=== PATIENT | female | born 1995 | race Caucasian/White ===

== ENCOUNTER 2022-08-19 10:43 | Inpatient (IN) ==
[2022-08-21] MEDS ORDERED: OXYTOCIN 30 UNITS/500 ML BAG IV PRN ×2 (08:38)
[2022-08-21] MEDS ORDERED: LIDOCAINE 1% LOCAL 20 ML VIAL INFIL PRN (08:38)
--- NOTE | 2022-08-21 09:20 | Anesthesiology Consultation ---
Date of Service August 21, 2022 Assessment & Plan Chart Review Chart Review: Acceptable Risk for Surgery, Patient NOT seen in Pre Admission Testing and Acceptable Risk for Labor Epidural Consults Requested none ASA ASA2 Proposed Anesthesia Anesthesia Type: Labor Epidural and CSE History Height/Weight Height: 5 ft 5 in Weight: 99.337 kg Allergies Allergy/AdvReac Type Severity Reaction Status Date / Time No Known Allergies Allergy Verified 08/18/22 11:57 Medications Home Medications Medication Instructions Recorded Confirmed Last Taken prenat.vits,lanre,qfv-lidt-uupki 1 tab PO DAILY 01/04/22 08/21/22 08/21/22 acetone (urine) test (Ketone Urine #50 ea 07/08/22 08/18/22 Unknown Test strips) blood sugar diagnostic (OneTouch #150 ea 07/08/22 08/18/22 Unknown Verio test strips) blood-glucose meter (AmnisTouch #1 ea 07/08/22 08/18/22 Unknown Verio Reflect Meter) lancets 33 gauge (OneTouch Delica #150 ea 07/08/22 08/18/22 Unknown Lancets) Past Medical History Medical History Gestational diabetes Diet-controlled No known health problems obesity Exercise / Class Metabolic Activity II 4-5 Yardwork/Stairs/Walk up hill Past Family History Family History Other Diabetes Hypertension Myocardial infarction Prostate cancer Past Surgical History Surgical History S/P wisdom tooth extraction Past Anesthesia History No Hx of Anesthesia Complications and No Family Hx of Anesthesia Complications History of PONV No Hx of PONV and No Hx of Motion Sickness Social History Smoking Status: Never smoker Do You Dip or Chew Tobacco: No Hx Alcohol Use: No Hx Substance Use: No Physical Exam Vital Signs Last Vital Signs Temp 36.8 C 08/21/22 08:44 Pulse 89 08/21/22 08:38 Resp 20 08/21/22 08:44 BP 128/83 08/21/22 08:38 Testing Laboratory Results 08/21/22 09:08 POC Glucose 112 H
--- NOTE | 2022-08-21 09:50 | Labor Progress Brief Note ---
Date of Service August 21, 2022 Subjective Patient met in 424. No OB c/o currently. Planned IOL delayed from Monday due to high census. Chart reviewed, EFW and option of 1'LTCS discussed with patient, prefers IOL. Assessment & Plan (1) Gestational diabetes mellitus (GDM) affecting : Plan: IOL, pitocin to start, eventually AROM / epidural if needed. Admission and Anticipated Discharge Date Admission Date: August 21, 2022 Physical Exam Genitourinary: 4/100/-2/soft/post FHT Cat 1 [place] irritable Results & Data Vital Signs (Past 12 Hours) Vital Signs Temp Pulse Resp BP 08/21/22 08:44 98.2 F 20 08/21/22 08:38 89 128/83 Coding Level of Care Code None Diagnoses Gestational diabetes mellitus (GDM) affecting O24.419
[2022-08-21 10:00] LABS: Hematocrit (blood only) 37.4 % (37.0-47.0); Hemoglobin 13.3 g/dl (12.0-16.0); Mean Corpuscular Hemoglobin 30.2 pg (25.0-34.0); Mean Corpuscular Hgb Conc 35.6 g/dL (32.0-36.0); Mean Corpuscular Volume 84.8 fL (80.0-100.0); Mean Platelet Volume 10.3 fL (9.4-12.4); Platelet Count 242 K/uL (130-400); RDW Standard Deviation 43.5 fL (36.4-46.3); Red Blood Count 4.41 M/uL (4.20-5.40); White Blood Count 7.99 K/ul (4.8-10.8)
[2022-08-21] MEDS: LACTATED RINGER'S 1,000 ML IV PRN ×2 (10:16→14:18)
[2022-08-21] MEDS ORDERED: fentaNYL citrate PF 100 MCG/2 ML VIAL ONE (13:54)
--- NOTE | 2022-08-21 13:54 | Labor Progress Brief Note ---
Date of Service August 21, 2022 Subjective More uncomfortable but still tolerating labor well. Interested in AROM and epidural. Assessment & Plan (1) Gestational diabetes mellitus (GDM) affecting : Plan: AROM complete, will request epidural, continue pitocin. Admission and Anticipated Discharge Date Admission Date: August 21, 2022 Physical Exam Genitourinary: Cervix similar to prior exam. AROM for copious clear fluid FHT Cat 1 [place] Q3-6 Results & Data Vital Signs (Past 12 Hours) Vital Signs Temp Pulse Resp BP 08/21/22 08:44 98.2 F 20 08/21/22 13:25 69 20 121/77 08/21/22 12:04 76 121/71 08/21/22 10:58 98.2 F 68 18 110/67 08/21/22 10:18 83 123/88 08/21/22 08:38 89 128/83 Coding Level of Care Code None Diagnoses Gestational diabetes mellitus (GDM) affecting O24.419
[2022-08-21] MEDS ORDERED: LIDOCAINE 2%/EPINEPHRINE 1:200,000 20 ML PF ONE (13:55)
[2022-08-21] MEDS ORDERED: ePHEDrine sulfate 50 MG/ML AMP ONE (13:55)
[2022-08-21] MEDS ORDERED: BUPIVACAINE 0.25% PF 30 ML VIAL ONE (13:55)
[2022-08-21] MEDS ORDERED: SODIUM CHLORIDE 0.9% PF INJ 10 ML VIAL ONE (13:55)
[2022-08-21] MEDS ORDERED: fentaNYL 2MCG/ML ROPIVACAINE 1.25MG/ML 100 ML BAG EPI ONE (13:55)
[2022-08-21] MEDS ORDERED: LIDOCAINE 2% MPF LOCAL 5 ML VIAL EPI PRN (14:02)
[2022-08-21] MEDS ORDERED: NALOXONE HCL 0.4 MG/1 ML VIAL/CARP IV PRN (14:02)
[2022-08-21] MEDS ORDERED: ONDANSETRON INJ 2 MG/ML 2 ML VIAL IV PRN (14:02)
[2022-08-21] MEDS ORDERED: fentaNYL 2MCG/ML ROPIVACAINE 1.25MG/ML 100 ML BAG EPI PRN (14:02)
[2022-08-21] MEDS ORDERED: ePHEDrine sulfate 50 MG/ML AMP IV PRN (14:02)
[2022-08-21] MEDS ORDERED: ROPIVACAINE 0.5% PF 5 MG/ML 20 ML VIAL EPI PRN (14:02)
[2022-08-21] MEDS ORDERED: PROMETHAZINE HCL 25 MG in SODIUM CHLORIDE 0.9% 50 ML IV PRN (14:02)
[2022-08-21] MEDS ORDERED: NALOXONE HCL 1 MG in SODIUM CHLORIDE 0.9% 1000ML 1,000 ML IV PRN (14:02)
[2022-08-21] MEDS ORDERED: LIDOCAINE 2%/EPINEPHRINE 1:200,000 20 ML PF EPI STA (14:02)
[2022-08-21] MEDS ORDERED: NALBUPHINE HCL INJ 10 MG/ML AMP IV PRN (14:02)
[2022-08-21] MEDS ORDERED: BUPIVACAINE 0.25% PF 30 ML VIAL EPI STA (14:02)
[2022-08-21] MEDS ORDERED: SODIUM CHLORIDE 0.9% PF INJ 10 ML VIAL EPI PRN (14:02)
[2022-08-21] MEDS ORDERED: BUPIVACAINE 0.25% PF 30 ML VIAL EPI PRN (14:02)
[2022-08-21] MEDS ORDERED: fentaNYL citrate PF 100 MCG/2 ML VIAL EPI PRN (14:02)
[2022-08-21] MEDS ORDERED: diphenhydrAMINE 50 MG/ML VIAL IV PRN (14:02)
[2022-08-21] MEDS: fentaNYL citrate PF 100 MCG/2 ML VIAL EPI STA ×2 (15:04→17:08)
[2022-08-21] MEDS: SODIUM CHLORIDE 0.9% PF INJ 10 ML VIAL EPI STA ×2 (15:05→17:08)
[2022-08-21] MEDS ORDERED: NURSING L&D Epidural Breakthrough Pain Update ONE (16:57)
--- NOTE | 2022-08-21 17:04 | Anesthesia Procedure Note ---
Date of Service August 21, 2022 Anesthesia Epidural Re-Dose Vital Signs Temp Pulse Resp BP Pulse Ox 36.7 C 80 20 127/78 98 08/21/22 14:50 08/21/22 17:03 08/21/22 16:07 08/21/22 16:52 08/21/22 17:03 Notes Pain Intensity: 7 Dilatation (cm): 8.5 Effacement (%): 100 Heart Rate: 140 After Epidural Re-Dose Mental Status: alert / awake / arousable and participated in evaluation Pain: improving with treatment Airway Patency, RR, SpO2: stable & adequate BP & HR: stable & adequate Additional Notes: @ 1700 pt epidural catheter was bolused w/ 12 ml 0.17% bupivacaine + fentanyl 100 mcgs using incremental aspirations and injections,performed w/o incident.
--- NOTE | 2022-08-21 20:17 | Delivery Summary ---
Vaginal Delivery Summary Date of Service August 21, 2022 Vaginal Delivery Summary DIAGNOSES: 1. Soriano intrauterine at 40w2d gestation. 2. Induction of labor due to A1GDM, LGA. 3. Group B Streptococcus Neg. 4. PPH 600cc PROCEDURE: Spontaneous vaginal delivery and repair of bilateral sulcal and 2nd deg laceration. SURGEON: Jazmyne Restrepo MD. BIOMEDICAL ENGINEERING PROFESSOR: None. ESTIMATED BLOOD LOSS: 600 mL. COMPLICATIONS: None. PLACENTA: Spontaneous and intact with a 3-vessel cord. DISPOSITION: Stable to labor and delivery. DESCRIPTION: The patient pushed well and brought the head to in OA position, and then delivered the head with a strong maternal effort. There was no nuchal cord. The shoulders and body delivered without any difficulty, and the was placed on the maternal abdomen. It was limp with no movement and no respiratory effort. The cord was doubly clamped by the MD and then quickly cut by the FOB and it was taken rapidly to the warmer for resuscitation, which included PPV; see nursery notes for full information. Apgars were 1 and 8. The placenta delivered spontaneously and was noted to be intact and with a 3VC. The cervix, vagina and perineum were examined and were found to have bilateral sulcal lacerations and a deep second degree laceration. These were repaired in the usual manner with vicryl suture. One episode of brisk bleeding during repair was able to be managed with fundal massage. The fundus was firm and lochia minimal immediately after delivery. EBL was felt to be 600cc due to a combination of large lacerations and uterine bleeding. Although there is not currently atony, given the already-significant loss and the elevated risk of atony after delivery of large , cytotec 1000mcg was placed [place]. [facility] Vaginal Delivery Charge Vaginal Delivery Codes: 99853 global code for the antepartum, delivery, and post-
[2022-08-21] MEDS ORDERED: miSOPROStoL 200 MCG TAB ONE (20:55)
[2022-08-21] MEDS ORDERED: DIPHTHERIA/TETANUS/PERTUSSIS Vaccine (Tdap, Age 7+yrs) 0.5mL SYR/VL IM ONE (21:05)
[2022-08-21] MEDS ORDERED: oxyCODONE/ACETAMINOPHEN 5mg/325mg TAB PO PRN (21:05)
[2022-08-21] MEDS ORDERED: BENZOCAINE 20% AER SPR 82.5 GM CAN EXT PRN (21:05)
[2022-08-21] MEDS ORDERED: HYDROCORTISONE ACETATE 25 MG SUPP PR PRN (21:05)
[2022-08-21] MEDS ORDERED: miSOPROStoL 200 MCG TAB PR ONE (21:17)
[2022-08-21] MEDS: DOCUSATE SODIUM 100 MG CAP PO SCH (21:44)
[2022-08-21] MEDS: ACETAMINOPHEN 325 MG TAB PO PRN (21:44)
[2022-08-21] MEDS: IBUPROFEN 600 MG TAB PO PRN (23:20)
[2022-08-22] MEDS: IBUPROFEN 600 MG TAB PO PRN ×4 (04:14→21:04)
[2022-08-22] MEDS: ACETAMINOPHEN 325 MG TAB PO PRN ×3 (05:49→23:22)
--- NOTE | 2022-08-22 05:51 | Obstetrical Progress Note ---
Date of Service <Rosanne Karlo DO Jonathon - Last Filed: 08/22/22 05:51> August 22, 2022 Assessment & Plan <Rosanne Karlo DO [place]athon - Last Filed: 08/22/22 05:51> (1) care following vaginal delivery: Feels well today. Eating well, voiding well, ambulating well. Pain well controlled with prn motrin. Routine care; OOB, ambulation, continue regular diet. Anticipate discharge roughly 24 hours after delivery for a , tonight or tomorrow. After discharge will have 6 week follow-up with Dr. Restrepo. <Jazmyne Restrepo MD - Last Filed: 08/22/22 07:09> (1) care following vaginal delivery: Subjective <Rosanne Karlo DO [place] - Last Filed: 08/22/22 05:51> Pt is a 27 y/o female who is PPD#1 following at 40 2/7 weeks. was complicated by GDM, LGA, and delivery was complicated by PPH of 600mL. Today, patient states that she is feeling well. Her pain is around a 4/10 and has been well controlled with motrin. She has been ambulating. She has been voiding and passing gas. Has some persistent lochia with some improvement this morning. She has eaten regular diet without nausea or vomiting. She is breast feeding. Baby boy's name is Rj. Constitutional: no fever, no chills or no sweats Respiratory: no dyspnea Cardiovascular: no chest pain or no palpitations Breast: no breast pain Genitourinary (female): no dysuria Neurologic: no headache(s) no changes in vision, no headaches Physical Exam <Rosannechris Holt DO - Last Filed: 08/22/22 05:51> General: Alert, oriented. No acute distress. Cardiac: Regular rate and rhythm, no murmurs, rubs, or gallops. Respiratory: Clear to auscultation bilaterally, no wheezes/rales/rhonchi. No increased work of breathing. Symmetrical chest rise. No respiratory distress. Abdomen: Soft, nontender, nondistended. Bowel sounds present. Uterus: Uterine fundus firm, palpable below the umbilicus. Lower extremities: No lower extremity edema or swelling. No deep calf pain. Results & Data <Rosannechris Holt, DO - Last Filed: 08/22/22 05:51> Vital Signs (Past 12 Hours) Vital Signs Temp Pulse Pulse Resp BP BP Pulse Ox 08/22/22 03:12 36.9 C 87 18 106/65 96 08/21/22 22:10 37.0 C 20 08/21/22 22:52 36.9 C 87 18 129/77 08/21/22 21:40 20 08/21/22 21:10 18 08/21/22 20:55 18 08/21/22 20:40 18 08/21/22 20:25 18 08/21/22 20:10 20 08/21/22 22:11 86 127/84 08/21/22 21:56 89 118/79 08/21/22 21:41 87 121/78 08/21/22 21:26 83 120/82 08/21/22 21:11 82 128/73 08/21/22 20:56 99 H 129/75 08/21/22 20:41 86 118/60 08/21/22 20:38 81 99 08/21/22 20:33 86 100 08/21/22 20:28 80 99 08/21/22 20:25 78 122/74 08/21/22 20:23 78 100 08/21/22 20:18 99 H 99 08/21/22 20:13 96 H 100 08/21/22 20:10 90 123/71 08/21/22 20:08 89 98 08/21/22 20:07 91 H 118/68 08/21/22 20:03 88 98 08/21/22 19:58 104 H 98 08/21/22 19:53 85 98 08/21/22 19:52 85 140/65 08/21/22 19:48 81 94 08/21/22 19:47 83 91 08/21/22 19:43 85 98 08/21/22 19:38 115 H 95 08/21/22 19:33 95 H 97 08/21/22 19:28 113 H 97 08/21/22 19:23 106 H 97 08/21/22 19:24 106 H 123/59 L 08/21/22 19:18 113 H 98 08/21/22 19:13 102 H 98 08/21/22 19:08 98 08/21/22 19:08 97 H 08/21/22 19:08 96 H 133/61 08/21/22 19:03 95 H 98 08/21/22 18:58 114 H 98 08/21/22 18:53 123 H 98 08/21/22 18:54 100 H 127/69 08/21/22 18:48 98 H 98 08/21/22 18:43 95 H 97 08/21/22 18:38 97 H 95 08/21/22 18:33 91 H 98 08/21/22 18:28 98 H 99 08/21/22 18:23 108 H 97 08/21/22 18:22 115 H 134/79 08/21/22 18:18 96 H 100 08/21/22 18:13 102 H 99 08/21/22 18:08 93 H 97 08/21/22 18:07 79 130/72 08/21/22 18:03 96 H 97 08/21/22 17:58 84 97 08/21/22 17:54 93 H 20 108/65 08/21/22 17:53 92 H 98 08/21/22 17:48 93 H 97 O2 Del Method 08/22/22 03:12 Room Air 08/21/22 22:10 08/21/22 22:52 08/21/22 21:40 08/21/22 21:10 08/21/22 20:55 08/21/22 20:40 08/21/22 20:25 08/21/22 20:10 08/21/22 22:11 08/21/22 21:56 08/21/22 21:41 08/21/22 21:26 08/21/22 21:11 08/21/22 20:56 08/21/22 20:41 08/21/22 20:38 08/21/22 20:33 08/21/22 20:28 08/21/22 20:25 08/21/22 20:23 08/21/22 20:18 08/21/22 20:13 08/21/22 20:10 08/21/22 20:08 08/21/22 20:07 08/21/22 20:03 08/21/22 19:58 08/21/22 19:53 08/21/22 19:52 08/21/22 19:48 08/21/22 19:47 08/21/22 19:43 08/21/22 19:38 08/21/22 19:33 08/21/22 19:28 08/21/22 19:23 08/21/22 19:24 08/21/22 19:18 08/21/22 19:13 08/21/22 19:08 08/21/22 19:08 08/21/22 19:08 08/21/22 19:03 08/21/22 18:58 08/21/22 18:53 08/21/22 18:54 08/21/22 18:48 08/21/22 18:43 08/21/22 18:38 08/21/22 18:33 08/21/22 18:28 08/21/22 18:23 08/21/22 18:22 08/21/22 18:18 08/21/22 18:13 08/21/22 18:08 08/21/22 18:07 08/21/22 18:03 08/21/22 17:58 08/21/22 17:54 08/21/22 17:53 08/21/22 17:48 <Jazmyne Restrepo MD - Last Filed: 08/22/22 07:09> Co-Signing Physician Notes Resident Physician Supervision Note: I interviewed and examined the patient. Discussed with Dr. Holt and agree with findings and plan as documented in the note. Any exceptions or clarifications are listed here: [ ] Documented By: Jazmyne Restrepo MD, FACOG Resident Activity Tracking <Rosanne Holt DO - Last Filed: 08/22/22 05:51> Resident Involvement: Resident Care Provided Care Provided: OB Delivery
--- NOTE | 2022-08-22 07:37 | Anesthesia Procedure Note ---
Date of Service August 22, 2022 Anesthesia Post Epidural Note Vital Signs Vital Signs: Temp Pulse Resp BP Pulse Ox O2 Del Method 36.9 C 87 18 106/65 96 Room Air 08/22/22 03:12 08/22/22 03:12 08/22/22 03:12 08/22/22 03:12 08/22/22 03:12 08/22/22 03:12 Pain Intensity Bilateral Abdomen: Pain Intensity: 4 Notes Mental Status: alert / awake / arousable and participated in evaluation Nausea / Vomiting: adequately controlled Pain: adequately controlled Airway Patency, RR, SpO2: stable & adequate BP & HR: stable & adequate Hydration State: stable & adequate Neuraxial Anesthesia: was administered and sensory block resolved Anesthetic Complications: no major complications apparent and Pt Satisfied with anesthetic care Epidural: Removed without complications and With tip intact
[2022-08-22 07:58] LABS: Hematocrit (blood only) 27.6 % (37.0-47.0); Hemoglobin 9.7 g/dl (12.0-16.0); Mean Corpuscular Hemoglobin 30.5 pg (25.0-34.0); Mean Corpuscular Hgb Conc 35.1 g/dL (32.0-36.0); Mean Corpuscular Volume 86.8 fL (80.0-100.0); Mean Platelet Volume 10.4 fL (9.4-12.4); Platelet Count 210 K/uL (130-400); RDW Coefficient of Variation 13.8 % (11.5-14.5); RDW Standard Deviation 43.3 fL (36.4-46.3); Red Blood Count 3.18 M/uL (4.20-5.40); White Blood Count 11.12 K/ul (4.8-10.8)
[2022-08-22] MEDS: PRENATAL VITAMIN 1 TAB PO SCH (08:28)
[2022-08-22] MEDS: DOCUSATE SODIUM 100 MG CAP PO SCH ×2 (08:28→21:04)
[2022-08-22] MEDS ORDERED: bisacodyL 5 MG TABEC PO SCH (20:00)
[2022-08-23] MEDS ORDERED: bisacodyL 10 MG SUPP PR PRN
[2022-08-23] MEDS: IBUPROFEN 600 MG TAB PO PRN (03:18)
--- NOTE | 2022-08-23 06:18 | Obstetrical Progress Note ---
Date of Service <Rosanne Dietrich DO [place] - Last Filed: 08/23/22 06:18> August 23, 2022 Assessment & Plan <Rosanne Dietrich DO [place]athon - Last Filed: 08/23/22 06:18> (1) care following vaginal delivery: Pt continuing to do well today. Pain well controlled with prn motrin. Routine care; OOB, ambulation, continue regular diet. Plan for discharge today. After discharge will have 6 week follow-up with Dr. Restrepo. <Le Gleason MD, FACOG - Last Filed: 08/23/22 08:17> (1) care following vaginal delivery: Day #:: 2 Subjective <Rosanne Dietrich DO [place] - Last Filed: 08/23/22 06:18> Pt is a 27 y/o female who is PPD#2 following at 40 2/7 weeks. was complicated by GDM, LGA, and delivery was complicated by PPH of 600mL. Pt states that she is doing okay today. She states that she did not walk around as much yesterday because she had increased bleeding, which has since improved. She has been voiding and passing gas, no BM yet. She has been tolerating regular diet. Her pain today is about a 4/10 and she states it has been well controlled with motrin. No further questions or complaints at this time. She is breast feeding. Constitutional: no fever, no chills or no sweats Respiratory: no dyspnea Cardiovascular: no chest pain or no palpitations Breast: no breast pain Genitourinary (female): no dysuria Neurologic: no headache(s) no changes in vision, no headaches Physical Exam <Rosanne Dietrich DO [place] - Last Filed: 08/23/22 06:18> General: Alert, oriented. No acute distress. Cardiac: Regular rate and rhythm, no murmurs, rubs, or gallops. Respiratory: Clear to auscultation bilaterally, no wheezes/rales/rhonchi. No increased work of breathing. Symmetrical chest rise. No respiratory distress. Abdomen: Soft, nontender, nondistended. Bowel sounds present. Uterus: Uterine fundus firm, palpable below the umbilicus with minimal tenderness. Lower extremities: No lower extremity edema or swelling. No deep calf pain. Results & Data <Rosanne Holt DO - Last Filed: 08/23/22 06:18> Vital Signs (Past 12 Hours) Vital Signs Temp Pulse Resp BP BP Pulse Ox O2 Del Method 08/22/22 23:45 36.8 C 89 18 101/63 96 Room Air 08/22/22 19:26 36.9 C 92 H 18 109/63 96 Room Air <Le Gleason MD, FACOG - Last Filed: 08/23/22 08:17> Co-Signing Physician Notes Resident Physician Supervision Note: I was present with Dr. Holt during the history and exam. I discussed the case with the resident and agree with the findings and plan as documented in the note. Any exceptions or clarifications are listed here: stable doing well ready to go home, , ambulating, eating regular food and voiding. abd soft ff 2 down nt, nt calves. ppd#2, s/p , pph, hgb stable. pt aware of po iron. she will plan 6wk pp check. breast/had mmr/rh pos Documented By: Le Gleason MD, FACOG Resident Activity Tracking <Rosanne Holt DO - Last Filed: 08/23/22 06:18> Resident Involvement: Resident Care Provided Care Provided: OB Delivery
[2022-08-23 06:21] LABS: Hematocrit (blood only) 27.8 % (37.0-47.0); Hemoglobin 9.4 g/dl (12.0-16.0)
[2022-08-23] MEDS: PRENATAL VITAMIN 1 TAB PO SCH (08:18)
[2022-08-23] MEDS: DOCUSATE SODIUM 100 MG CAP PO SCH (08:18)
[2022-08-23] MEDS: ACETAMINOPHEN 325 MG TAB PO PRN (08:18)
== END 2022-08-23 14:02 | disposition home or self-care (01) | DRG 807 ==
LOC: 4S1 08-21 08:28 → 4E1 08-21 23:01

== ENCOUNTER 2024-02-29 23:43 | Observation (INO) ==
--- NOTE | 2024-03-01 00:15 | Emergency Department Note ---
Impression & Plan Cholelithiasis affecting in third trimester, antepartum the case was signed out to Dr. Mcwilliams at change of shift awaiting MRCP ED Provider Note NAME: LAURA MOREL AGE: 28 SEX: Female INFORMANT: Patient ED PROVIDER(S): Rissa Rojo DO CHIEF COMPLAINT: epigastric pain PLAN: Disposition: the case was signed out to Dr. Mcwilliams MEDICAL DECISION MAKING: this is a 28-year-old female patient who presented to labor and delivery initially with epigastric abdominal pain. She was cleared from an obstetrical standpoint as to not be in labor and Dr. Butler did not think she was suffering from HELLP syndrome. She was concern for the possibility of acute cholecystitis As she had elevated transaminases. She referred her to the emergency department for further evaluation. Patient was medicated with IV morphine and Zofran Right upper quadrant ultrasound showed evidence of acute gallstones and sludge. I had discussed the case with GI and they recommended repeating the patient's LFTs in 6 to 8 hours. If they increased, they recommended MRCP. Repeat LFTs revealed elevated transaminases, total bilirubin and direct bilirubin. The patient will go for MRCP. The patient remains pain-free and hemodynamically stable. The case will be signed out to Dr. Mcwilliams awaiting MRI testing. The patient was placed on IV normal saline maintenance fluid and will be kept NPO. Care/management discussed with: Dr. Pepe from gastroenterology; Dr. Butler from OB; Dr. Mcwilliams at signout Triage Nursing notes: reviewed and agree with them. Vital Signs: reviewed and unremarkable Chronic Medical/Social Conditions affecting care: 30 weeks - Differential Diagnosis: pancreatitis, ulcerative disease, cholecystitis, choledocholithiasis Diagnostics, independently interpreted by me: Cardiac Monitoring: normal sinus rhythm at a rate of 85 Imaging studies: right upper quadrant ultrasound: As per [facility] MRCP-pending HPI: 28 year old Female arrives for evaluation of epigastric pain and nausea. patient developed significant epigastric pain around 630 this evening. She has never had pain like this in the past. She had associated nausea but no vomiting. She describes eating [employer] chicken dinner which was high in fat. patient was evaluated by OB on labor and delivery prior to coming to our emergency department. They cleared her by doing laboratory studies and monitoring the baby on the tocometer. She was not having any contractions and there was good movement. Laboratory studies revealed elevated transaminases PAST MEDICAL HISTORY: See Below, PAST SURGICAL HISTORY: none family history: Both parents have had cholecystectomy SOCIAL HISTORY: with 1 child at home, HOME MEDICATIONS: see list ALLERGIES: none VITALS: See Below PHYSICAL EXAMINATION: HEENT: Head - normocephalic and atraumatic. Pupils are equal, round, and reactive to light. Extraocular eye muscles are intact, and sclera are anicteric. Nose - moist nasal mucosa without discharge. Mouth - moist buccal mucosa. Oropharynx is nonerythematous and there is no tonsillar exudate or edema noted. Neck: Supple; No cervical lymphadenopathy Heart: Regular rate and rhythm. There is a normal S1 and S2 with no murmurs, clicks, or gallops appreciated. Lungs: Clear to auscultation bilaterally with no wheezes, rales, or rhonchi. Abdomen: Soft, exquisite tenderness to palpation in the epigastrium and right upper quadrant. The rest of the abdomen is gravid. Extremities: No evidence of cyanosis, clubbing, or edema. There are easily palpable peripheral pulses. Skin: warm and dry with good turgor and no rashes. Emergency department treatment: IV morphine, IV Zofran, IV normal saline drip Emergency Department course: The patient was evaluated in room B-3. A complete history and physical was performed. IV lock was initiated and lipase was drawn. Patient was medicated with IV morphine and IV Zofran. She went for ultrasound of the right upper quadrant. Upon returning from radiology, she was much more comfortable. I reviewed the results of the ultrasound with the patient. I discussed the case with Dr. Pepe from gastroenterology. He recommended repeating the laboratory studies around 6 AM. We did this and the values had increased. We will obtain MRCP. The patient was placed on IV normal saline drip and kept NPO. The case was signed out to Dr. Mcwilliams. Past Med/Surg History Problem List (Updated 03/01/24 @ 17:11 by Rissa Rojo DO) Cholelithiasis affecting in third trimester, antepartum (Acute) Transaminitis Cholelithiasis without cholecystitis Gallstone Abdominal pain affecting Maternal care for other isoimmunization, unspecified trimester, not applicable or unspecified Gestational diabetes mellitus (GDM) affecting Encounter for anatomic survey Medical History Varicella vaccination Rubella non-immune status, antepartum Gestational diabetes Diet-controlled Surgical History S/P wisdom tooth extraction Family History Other Diabetes Hypertension Myocardial infarction Prostate cancer Denies family history of Ovarian cancer Breast cancer Colorectal cancer Social History Smoking Status: Never smoker Second Hand Exposure: No; Do You Dip or Chew Tobacco: No; Hx Alcohol Use: No Hx Substance Use: No Preferred Language: Vietnamese Communication Ability: Effective Visual Impairment: No Limitations Hearing Ability: Normal Meals On Wheels Driver Required: No Beliefs That Will Affect Care: None marital status: marital status details: Victor Manuel Morel (29) [phone] Current Living Situation: Spouse and Family Current Living Situation Comment: lives with spouse and child, no pets. current occupational status: unemployed current occupation: Homemaker How many Children do You have: 1 Feels Safe at Home: Yes Diet Comment: Gestational diabetic Allergies Allergies Allergy/AdvReac Type Severity Reaction Status Date / Time No Known Allergies Allergy Verified 02/15/24 09:48 Home Meds Home Medications Medication Instructions Recorded Confirmed prenat.vits,lanre,owe-lnwe-jkanh 1 tab PO DAILY 01/04/22 03/01/24 calcium carbonate 500 mg PO DAILY 02/29/24 03/01/24 Previous Rx's Medication Instructions Recorded breast pump #1 ea 02/15/24 Results & Data (ED) Vital Signs Vital Signs - 24 hr 02/29/24 23:46 03/01/24 03:44 03/01/24 05:00 Temperature 36.5 C Temperature Source Temporal Artery Scan Pulse Rate 85 Pulse Rate [Right] 78 70 Respiratory Rate 18 16 18 Respiratory Effort / Characteristics Non-Labored Spontaneous Respiratory Depth Normal Normal Normal Blood Pressure 122/80 Blood Pressure [Right Arm] 110/78 115/78 Blood Pressure Mean 94 Blood Pressure Mean [Right Arm] 88 90 Pulse Oximetry 97 98 99 Oxygen Delivery Method Room Air Room Air Room Air Sepsis Recent Fever Within 48 Hours No Sepsis New/Unexplained Change in Mental Status No Sepsis Action Taken by Nursing No Action Required 03/01/24 08:13 03/01/24 09:00 03/01/24 12:25 Temperature Temperature Source Pulse Rate 76 82 Pulse Rate [Right] 84 Respiratory Rate 20 Respiratory Effort / Characteristics Respiratory Depth Blood Pressure Blood Pressure [Right Arm] 110/74 Blood Pressure Mean Blood Pressure Mean [Right Arm] 86 Pulse Oximetry 98 Oxygen Delivery Method Sepsis Recent Fever Within 48 Hours Sepsis New/Unexplained Change in Mental Status Sepsis Action Taken by Nursing Laboratory Data Lab Results 03/01/24 03/01/24 03/01/24 Range/Units 00:14 06:10 07:03 Total Bilirubin Cancelled 1.6 H D Direct Bilirubin Cancelled 1.0 H AST Cancelled 92 H ALT Cancelled 87 H Alkaline Phosphatase Cancelled 181 H Total Protein Cancelled 6.2 Albumin Cancelled 3.5 Lipase 22 (11-82) U/L Urine Color Dark Yellow Urine Appearance Clear (Clear) Urine pH 6.5 (4.5-7.5) Ur Specific [place] 1.023 (1.000-1.030) Urine Protein Trace H (Negative) Urine Glucose (UA) Negative (Negative) Urine Ketones Trace H (Negative) Urine Blood Negative (Negative) Urine Nitrite Negative (Negative) Urine Bilirubin 2+ H (Negative) Urine Urobilinogen Negative (Negative) Ur Leukocyte Esterase Negative (Negative) Urine WBC (Auto) 0-5 (0-5) /hpf Urine RBC (Auto) 0-2 (0-2) /hpf U Hyaline Cast (Auto) 0-2 (0-2) /lpf U Epithel Cells (Auto) 0-2 (0-2) /hpf Urine Bacteria (Auto) None Seen (None Seen) Administered Medications Discontinued Medications Sodium Chloride (Nss) 500 mls @ 125 mls/hr IV .Q4H EDIN Stop: 03/01/24 10:59 Last Admin: 03/01/24 08:18 Dose: 125 mls/hr Documented By: EN Sodium Chloride (Nss) 1,000 mls @ 250 mls/hr IV .Q4H ONE Stop: 03/01/24 11:20 Last Infusion: 03/01/24 14:26 Dose: Infused Documented By: Admin: 03/01/24 08:18 Dose: 250 mls/hr Documented By: EN Ampicillin Sodium/Sulbactam Sodium (Unasyn) 3,000 mg in 100 mls @ 200 mls/hr IV ONE ONE Stop: 03/01/24 15:44 Last Admin: 03/01/24 15:52 Dose: 200 mls/hr Documented By: HB Morphine Sulfate (Morphine Sulfate 4 Mg/Ml 1 Ml Carp\Vial) 4 mg IV NOW STA Stop: 03/01/24 00:18 Last Admin: 03/01/24 00:22 Dose: 4 mg Documented By: Ondansetron HCl (Ondansetron Inj 2 Mg/Ml 2 Ml Vial) 4 mg IV NOW STA Stop: 03/01/24 00:18 Last Admin: 03/01/24 00:22 Dose: 4 mg Documented By: Imaging Data Radiologist's Impression: Cholangiopancreatography MRI 03/01/24 06:49 MR MRCP HISTORY: 28 years-old Female gall stones; elev. LFTS; acute right upper quadrant abdominal pain with nausea and COMPARISON: Gallbladder ultrasound of same day TECHNIQUE: MRCP was obtained without IV contrast according to institutional protocol. FINDINGS: The imaged lower chest is unremarkable. Gravid uterus with partially visualized intrauterine fetus in cephalic positioning. Superior and posterior visualized placenta is unremarkable. The liver is enlarged measuring up to 19 cm in length. Probable focal fatty infiltration of the left hepatic lobe adjacent to the shi hepatis on image 14 series 3 correlating with the area of increased echogenicity on comparison ultrasound. Spleen is upper limits of normal in size at 13.3 cm. Unremarkable pancreas and adrenal glands. Mild gallbladder distention. Layering gallstones are present without significant gallbladder wall thickening or pericholecystic fluid. Normal caliber of the common bile duct measuring 3 mm. No choledocholithiasis identified. Normal caliber of the pancreatic duct. No pancreatic divisum. Kidneys are within normal limits. No hydronephrosis, lymphadenopathy, bowel obstruction or bowel wall thickening identified. No free fluid. Moderate fecal retention of the ascending and transverse colon. Unremarkable soft tissues and osseous structures. IMPRESSION: 1. Mildly distended gallbladder with cholelithiasis. No definite evidence of acute cholecystitis. 2. No biliary duct dilation or choledocholithiasis identified. 3. Partially imaged intrauterine fetus in cephalic positioning. 4. Hepatomegaly. ACT 112: Negative or not required by law. The above report was generated using voice recognition software. It may contain grammatical, syntax or spelling errors. Electronically signed by: Sami Rubio M.D. 03/01/2024 8:53 AM Discharge Plan Visit Data Chief Complaint: Abdominal Pain Stated Complaint: ABD PAIN, 30 WEEKS , SENT FROM L/D ED Provider: Hank Mcwilliams Discharge Problem: Cholelithiasis affecting in third trimester, antepartum Patient Disposition: Admitted As Inpatient Discharge Instructions Interventions: ED Discharge Assessment Last Done: 03/01/24 16:49
[2024-03-01] MEDS: ONDANSETRON INJ 2 MG/ML 2 ML VIAL IV STA (00:22)
[2024-03-01] MEDS: MoRPHine SULFATE 4 MG/ML 1 ML CARP\\VIAL IV STA (00:22)
--- NOTE | 2024-03-01 04:01 | Ultrasound Report ---
EXAM: US gallbladder CLINICAL HISTORY: NO PREV. EPIGASTRIC PAIN. PT IS 30 WKS TECHNIQUE: Ultrasound examination of the limited abdomen was performed using grayscale and doppler imaging. COMPARISON: None. FINDINGS: The pancreas is seen within normal limits. The liver is seen enlarged measuring 18.5 cm with increased parenchymal echogenicity. Echogenic area is seen adjacent to the gallbladder/portal area could be hemangioma measuring 3.8 x 2.3 x 3.1 cm. The portal vein is seen patent with hepatopetal flow. The gallbladder is seen distended with normal wall thickness measuring 1.1 mm. Multiple stones and sludge are noted within the gallbladder. Negative Lee sign. The common bile duct is not dilated measuring 3 mm. The right kidney is seen within normal limits with no definite stones or hydronephrosis within. IMPRESSION: 1. Fatty enlarged liver. 2. Echogenic area seen within the right lobe adjacent to the gallbladder/portal area most likely hemangioma. 3. Fixed cholelithiasis. 4. Otherwise unremarkable study. 5. Clinical correlation is suggested for further evaluation. Electronically signed by Richar Ramírez 03-01-2024 04:00 AM
[2024-03-01 06:39] LABS: Albumin Level 3.5 gm/dl (3.4-5.0); Bilirubin,Total 1.6 mg/dl (0.2-1.0); Total Protein 6.2 gm/dl (6.0-8.3)
[2024-03-01 07:45] LABS: Appearance Urine Clear (Clear); Bacteria Urine Automated None Seen (None Seen); Bilirubin Urine 2+ (Negative); Blood Urine Negative (Negative); Cast Urine Automated 0-2 /lpf (0-2); Color Urine Dark Yellow; Epithelial Cell Urine Auto 0-2 /hpf (0-2); Glucose Urine UA Negative (Negative); Ketones Urine Trace (Negative); Leukocyte Esterase Urine Negative (Negative); Nitrite Urine Negative (Negative); Protein Urine Trace (Negative); RBC Urine Automated 0-2 /hpf (0-2); Specific Gravity Urine 1.023 (1.000-1.030); Urobilinogen Urine Negative (Negative); WBC Urine Automated 0-5 /hpf (0-5); pH Urine 6.5 (4.5-7.5)
--- NOTE | 2024-03-01 08:01 | Emergency Department Note ---
ED Visit Note The patient was taken in signout from Dr. Rojo at the change of shift. Please see her note for details of the patient's presentation. The patient was pending completion of MRCP for further disposition. In brief, the patient is a 28-year-old woman at 30 weeks gestation who presents to the emergency department for evaluation of abdominal pain with elevated LFTs. The patient had completed monitoring with labor and delivery. HELLP syndrome considered however cleared by OB. BP normal and no significant urine protein. Emergency Department evaluation recommended. Case was reviewed with CHAYO Valentine recommended repeating LFTs and if they continue to rise then MRCP for further assessment should be obtained. Patient's LFTs did rise total bilirubin 1.6 with direct bilirubin 1.0, AST and ALT at 92 and 87, respectively. Alk phos is 181. Lipase is normal. Platelets were normal. Gallbladder ultrasound demonstrates enlarged liver. Gallbladder is distended with normal wall thickness measuring 1.1 mm. Multiple stones and sludge are noted within the gallbladder. There is negative Lee sign. There is no pericholecystic fluid. CBD is not dilated and measures 3 mm. MRCP was completed and demonstrates a mildly distended gallbladder with cholelithiasis without evidence of acute cholecystitis. There is no biliary ductal dilatation or choledocholithiasis identified. Hepatomegaly is noted. Findings were reviewed with CHAYO Nina with [facility]AYO Valentine and recommend transfer to tertiary care facility for EUS and consideration of cholecystectomy if negative. Patient did prefer transfer to [facility]. [facility] transfer center was contacted and conference call was held and case was reviewed with CHAYO Corrales who does not feel the patient requires transfer at this time and recommends continued management at [facility] for monitoring of the patient's LFTs and symptoms. If LFTs continue to rise and patient experiences return of abdominal pain, then MRCP is recommended. Of note, she also reports that he EUS is not performed over the weekend. Appreciate consultation recommendations. COLE DOMINGO was updated. Recommends inpatient surgery consultation. Case was d/w Dr. Smith, [facility] hospitalist who will evaluate the patient for admission. Appreciate consultations and recommendations. Patient continued to appear well and denied recurrence of pain. She is in agreement with updated plan. Further management per admitting team. Results & Data Laboratory Data Lab Results 03/01/24 03/01/24 03/01/24 Range/Units 00:14 06:10 07:03 Total Bilirubin Cancelled 1.6 H D Direct Bilirubin Cancelled 1.0 H AST Cancelled 92 H ALT Cancelled 87 H Alkaline Phosphatase Cancelled 181 H Total Protein Cancelled 6.2 Albumin Cancelled 3.5 Lipase 22 (11-82) U/L Urine Color Dark Yellow Urine Appearance Clear (Clear) Urine pH 6.5 (4.5-7.5) Ur Specific [place] 1.023 (1.000-1.030) Urine Protein Trace H (Negative) Urine Glucose (UA) Negative (Negative) Urine Ketones Trace H (Negative) Urine Blood Negative (Negative) Urine Nitrite Negative (Negative) Urine Bilirubin 2+ H (Negative) Urine Urobilinogen Negative (Negative) Ur Leukocyte Esterase Negative (Negative) Urine WBC (Auto) 0-5 (0-5) /hpf Urine RBC (Auto) 0-2 (0-2) /hpf U Hyaline Cast (Auto) 0-2 (0-2) /lpf U Epithel Cells (Auto) 0-2 (0-2) /hpf Urine Bacteria (Auto) None Seen (None Seen) Administered Medications Discontinued Medications Sodium Chloride (Nss) 500 mls @ 125 mls/hr IV .Q4H EDIN Stop: 03/01/24 10:59 Last Admin: 03/01/24 08:18 Dose: 125 mls/hr Documented By: EN Sodium Chloride (Nss) 1,000 mls @ 250 mls/hr IV .Q4H ONE Stop: 03/01/24 11:20 Last Infusion: 03/01/24 14:26 Dose: Infused Documented By: Admin: 03/01/24 08:18 Dose: 250 mls/hr Documented By: EN Morphine Sulfate (Morphine Sulfate 4 Mg/Ml 1 Ml Carp\Vial) 4 mg IV NOW STA Stop: 03/01/24 00:18 Last Admin: 03/01/24 00:22 Dose: 4 mg Documented By: Ondansetron HCl (Ondansetron Inj 2 Mg/Ml 2 Ml Vial) 4 mg IV NOW STA Stop: 03/01/24 00:18 Last Admin: 03/01/24 00:22 Dose: 4 mg Documented By: Imaging Data Radiologist's Impression: Gallbladder Ultrasound 02/29/24 23:58 EXAM: US gallbladder CLINICAL HISTORY: NO PREV. EPIGASTRIC PAIN. PT IS 30 WKS TECHNIQUE: Ultrasound examination of the limited abdomen was performed using grayscale and doppler imaging. COMPARISON: None. FINDINGS: The pancreas is seen within normal limits. The liver is seen enlarged measuring 18.5 cm with increased parenchymal echogenicity. Echogenic area is seen adjacent to the gallbladder/portal area could be hemangioma measuring 3.8 x 2.3 x 3.1 cm. The portal vein is seen patent with hepatopetal flow. The gallbladder is seen distended with normal wall thickness measuring 1.1 mm. Multiple stones and sludge are noted within the gallbladder. Negative Lee sign. The common bile duct is not dilated measuring 3 mm. The right kidney is seen within normal limits with no definite stones or hydronephrosis within. IMPRESSION: 1. Fatty enlarged liver. 2. Echogenic area seen within the right lobe adjacent to the gallbladder/portal area most likely hemangioma. 3. Fixed cholelithiasis. 4. Otherwise unremarkable study. 5. Clinical correlation is suggested for further evaluation. Electronically signed by Richar Ramírez 03-01-2024 04:00 AM Cholangiopancreatography MRI 03/01/24 06:49 MR MRCP HISTORY: 28 years-old Female gall stones; elev. LFTS; acute right upper quadrant abdominal pain with nausea and COMPARISON: Gallbladder ultrasound of same day TECHNIQUE: MRCP was obtained without IV contrast according to institutional protocol. FINDINGS: The imaged lower chest is unremarkable. Gravid uterus with partially visualized intrauterine fetus in cephalic positioning. Superior and posterior visualized placenta is unremarkable. The liver is enlarged measuring up to 19 cm in length. Probable focal fatty infiltration of the left hepatic lobe adjacent to the shi hepatis on image 14 series 3 correlating with the area of increased echogenicity on comparison ultrasound. Spleen is upper limits of normal in size at 13.3 cm. Unremarkable pancreas and adrenal glands. Mild gallbladder distention. Layering gallstones are present without significant gallbladder wall thickening or pericholecystic fluid. Normal caliber of the common bile duct measuring 3 mm. No choledocholithiasis identified. Normal caliber of the pancreatic duct. No pancreatic divisum. Kidneys are within normal limits. No hydronephrosis, lymphadenopathy, bowel obstruction or bowel wall thickening identified. No free fluid. Moderate fecal retention of the ascending and transverse colon. Unremarkable soft tissues and osseous structures. IMPRESSION: 1. Mildly distended gallbladder with cholelithiasis. No definite evidence of acute cholecystitis. 2. No biliary duct dilation or choledocholithiasis identified. 3. Partially imaged intrauterine fetus in cephalic positioning. 4. Hepatomegaly. ACT 112: Negative or not required by law. The above report was generated using voice recognition software. It may contain grammatical, syntax or spelling errors. Electronically signed by: Sami Rubio M.D. 03/01/2024 8:53 AM
[2024-03-01] MEDS: SODIUM CHLORIDE 0.9% 500 ML IV SCH (08:18)
[2024-03-01] MEDS: SODIUM CHLORIDE 0.9% 1,000 ML IV ONE (08:18)
--- NOTE | 2024-03-01 08:54 | Magnetic Resonance Report ---
MR MRCP HISTORY: 28 years-old Female gall stones; elev. LFTS; acute right upper quadrant abdominal pain with nausea and COMPARISON: Gallbladder ultrasound of same day TECHNIQUE: MRCP was obtained without IV contrast according to institutional protocol. FINDINGS: The imaged lower chest is unremarkable. Gravid uterus with partially visualized intrauterine fetus in cephalic positioning. Superior and posterior visualized placenta is unremarkable. The liver is enlar ged measuring up to 19 cm in length. Probable focal fatty infiltration of the left hepatic lobe adjac ent to the shi hepatis on image 14 series 3 correlating with the area of increased echogenicity on comparison ultrasound. Spleen is upper limits of normal in size at 13.3 cm. Unremarkable pancreas and adrenal glands. Mild gallbladder distention. Layering gallstones are present without significant gallbladder wall thi ckening or pericholecystic fluid. Normal caliber of the common bile duct measuring 3 mm. No choledoch olithiasis identified. Normal caliber of the pancreatic duct. No pancreatic divisum. Kidneys are within normal limits. No hydronephrosis, lymphadenopathy, bowel obstruction or bowel wall thickening identified. No free fluid. Moderate fecal retention of the ascending and transverse colon . Unremarkable soft tissues and osseous structures. IMPRESSION: 1. Mildly distended gallbladder with cholelithiasis. No definite evidence of acute cholecystitis. 2. No biliary duct dilation or choledocholithiasis identified. 3. Partially imaged intrauterine fetus in cephalic positioning. 4. Hepatomegaly. ACT 112: Negative or not required by law. The above report was generated using voice recognition software. It may contain grammatical, syntax o r spelling errors. Electronically signed by: Sami Rubio M.D. 03/01/2024 8:53 AM
--- NOTE | 2024-03-01 09:55 | Gastrointestinal Consultation ---
Date of Consultation March 01, 2024 Assessment & Plan (1) Gallstone: 28 year old female who is 30 weeks presenting to the ED w/ abrupt onset upper abd pain following dinner. She has elevated LFTs w/ Tbili 1.6, AST 92, ALT 87 and ALKP 181. ABD US revealed gallstones and a normal CBD at 3mm. MRCP conducted which revealed mild gallbladder distention, gallstones and normal CBD at 3mm without appreciation of choledocholithiasis She is afebrile w/ stable vital signs, BP 110/74 w/o leukocytosis. As MRCP is negative but her transaminases remain elevated w/ known gallstones on imaging, she should be transferred for EUS evaluation. If EUS reveals CBD stones, ERCP can be conducted at that time. If EUS clears the bile duct, she should be evaluated by general surgery to weigh the risks/benefits and timing of cholecystectomy. Thank you for allowing us to participate in the care of this patient. Please call with any acute changes, questions or concerns. Please see addendum below with additional recommendation from my supervising physician. Recall GI as needed. Will sign off. I spent a total of 45 minutes on the date of service in review of patient's record, and previously obtained information in person and appropriate medical visit, discussion and education of plan, with patient and/or caregiver, placing orders for tests/referral/procedures as medically necessary and documentation of pertinent clinical information in patient's medical records for their visit today. History of Present Illness Reason for Consultation: elevated LFTs Requesting Physician: Dr. Mcwilliams Attending Physician: Dr. Mcwilliams History of Present Illness 28 year old female who is 30 weeks presenting to the ED w/ abrupt onset upper abd pain following dinner (pasta w/ cream sauce). She notes pain was midline but radiated and was bandlike in her upper abdomen. Associated w/ nausea but no vomiting. No report of change in bowel habits. She suggests since ED admission, pain is greatly improved. No fever, chills, CP, SOB. Tbili 0.9 --> 1.6 AST 67 --> 92 ALT 56 --> 87 ALKP 168 --> 181 MRCP 2024: Mildly distended gallbladder with cholelithiasis. No definite evidence of acute cholecystitis. No biliary duct dilation or choledocholithiasis identified. Partially imaged intrauterine fetus in cephalic positioning. Hepatomegaly. ABD US 2024: The gallbladder is seen distended with normal wall thickness measuring 1.1 mm. Multiple stones and sludge are noted within the gallbladder. Negative Lee sign. The common bile duct is not dilated measuring 3 mm. Allergies Allergy/AdvReac Type Severity Reaction Status Date / Time No Known Allergies Allergy Verified 02/15/24 09:48 Home Medications Medication Instructions Recorded Confirmed Type prenat.vits,lanre,cid-[id number]-bcgtf 1 tab PO DAILY 01/04/22 03/01/24 History breast pump #1 ea 02/15/24 03/01/24 Rx calcium carbonate 500 mg PO DAILY 02/29/24 03/01/24 History Patient History Medical History (Updated 03/01/24 @ 09:51 by CHELE Nina) Varicella vaccination Rubella non-immune status, antepartum Gestational diabetes Diet-controlled Surgical History S/P wisdom tooth extraction Family History (Updated 09/27/23 @ 09:55 by Rosanne Beauchamp RN) Other Diabetes Hypertension Myocardial infarction Prostate cancer Denies family history of Ovarian cancer Breast cancer Colorectal cancer Social History (Updated 09/27/23 @ 09:53 by Rosanne Beauchamp RN) Smoking Status: Never smoker Second Hand Exposure: No; Do You Dip or Chew Tobacco: No; Hx Alcohol Use: No Hx Substance Use: No Preferred Language: Spanish Communication Ability: Effective Visual Impairment: No Limitations Hearing Ability: Normal Housing Management Representative Required: No Beliefs That Will Affect Care: None marital status: marital status details: Victor Manuel Gao (29) [phone] Current Living Situation: Spouse and Family Current Living Situation Comment: lives with spouse and child, no pets. current occupational status: unemployed current occupation: Homemaker How many Children do You have: 1 Feels Safe at Home: Yes Diet Comment: Gestational diabetic Review of Systems Review of Systems: All other findings negative except as noted in HPI. Physical Exam Constitutional: WD/WN, vitals as above Respiratory: normal respiratory effort Cardiovascular: Rate/Rhythm: regular rate Gastrointestinal (Abdomen): normal bowel sounds, soft, nontender, no hepatosplenomegaly Skin: no rashes, warm and dry Results & Data Vital Signs (Past 12 Hours) Vital Signs Temp Pulse Pulse Resp BP BP Pulse Ox 03/01/24 09:00 84 20 110/74 98 03/01/24 08:13 76 03/01/24 05:00 70 18 115/78 99 03/01/24 03:44 78 16 110/78 98 02/29/24 23:46 97.7 F 85 18 122/80 97 O2 Del Method 03/01/24 09:00 03/01/24 08:13 03/01/24 05:00 Room Air 03/01/24 03:44 Room Air 02/29/24 23:46 Room Air PG Care Time/CCT Total # of Minutes Spent Total Time Spent with Patient: Total time spent is greater than 50% in coordination of care (as documented) at patient's floor/unit and/or counseling patient: Coding Level of Care Code 79525 OFFICE CONSULT LVL Diagnoses Gallstone K80.20
--- NOTE | 2024-03-01 14:07 | History & Physical Report ---
Date of Service March 01, 2024 Assessment & Plan (1) Cholelithiasis without cholecystitis: (2) Abdominal pain affecting : (3) Transaminitis: (4) Choledocholithiasis: Plan Patient is 30 weeks -0-0-1 being admitted for abdominal pain and trending LFTs. ED eval showed uptrend of LFTs, gallbladder ultrasound showed fixed cholelithiasis, MRCP showed mild gallbladder distention, gallstones, normal CBD; no concern for cholecystitis. Was recommended transfer for EUS, however tertiary care center denied given no EUS over weekend. It is suspected that patient's gallstone has passed given her pain has been resolved since at 1000 03/01. Hospitalist team will admit to trend LFTs, anticipate to peak evening 03/01, anticipate to downtrend by a.m. labs 03/02. If LFTs continue to uptrend with a.m. labs 03/02 will need transfer to tertiary care for potential surgical m anagement, will need NICU center. #Cholelithiasis without cholecystitis/ transaminitis Gallbladder ultrasound showed fatty enlarged liver, possible hemangioma, fixed cholelithiasis MRCP showed mildly distended gallbladder with cholelithiasis, no evidence of acute cholecystitis LFTS - total bili 1.6, direct bili 1.0, AST 92, ALT 87, alk phos 181 afebrile, no leukocytosis, VSS GI eval in ED - recommended transfer for EUS and potential ERCP - tertiary care center tonight as no EUS over weekend - will consult GI, defer hepatitis screening to GI team LFT trend; LFTs 1800 and with a.m. labs - anticipate peak with 1800 labs - Would not transfer if LFTs elevated this evening, however would consider transfer if elevated with a.m. labs overall nonconcerning for cholangitis however will cover empirically with Unasyn until LFT downtrend; UpToDate recommended safe in with gallstones 3G Iv Q6H nonconcerning for HELLP syndrome at this time; platelets stable trend CBC consult general surgery will advance to clear liquid, low-fat diet # 30 weeks -0-0-1 history of gestational diabetes in first , not during current consult OB during inpatient stay UpToDate - Unasyn recommended for gallstones in continue home vitamin VTE ppx: SCDs Diet: clear liquid, low-fat Dispo: med surg anticipate discharge home 03/02 if LFTs downtrend with a.m. labs Admission and Anticipated Discharge Date Admission Date: 03/01/24 History of Present Illness Chief Complaint: abd pain Primary Care Provider: NO PCP Patient is a 28 y/o who is 30 weeks with essential no other PMHX. 37 history of gestational diabetes in her first , just had an GDM test recently and passed. She was evaluated by OB last night and sent down to the ER due to sudden onset upper abdominal pain. She stated that this pain began at 630 last night after dinner, it was intense and across her upper abdomen and back. It felt like a tight band. It was worsening throughout the evening so she came into the hospital around 9 PM. She noted associated nausea and dyspnea due to the pain. She felt like she cannot get comfortable, had significant pain with sitting, standing, laying down. While she was in the ED, her pain waxed and waned until 1 AM when she received morphine and Zofran which stopped her pain. Her pain has not returned. Patient denies fever, chills, dizziness, lightheadedness, vision changes, dyspnea, chest pain, current abdominal pain, nausea, vomiting, diarrhea. She has no previous history of cholelithiasis. Gallbladder ultrasound showed fixed cholelithiasis, normal echogenic area seen within right lobe adjacent to gallbladder/portal area mostly hemangioma. In ED, LFTs up trended so patient underwent an MRCP at roughly 6 AM on 03/01. MRCP was essentially negative and did not show any stone. She was evaluated by GI who recommended she be transferred for EUS. Handoff from ER provider stated that tertiary care center denied patient as she would not arrive till late in the e vening today and they do not do EUS over the weekend. With patient being pain- free, likely passed stone. It was recommended that she be admitted to medicine for LFT monitoring, if continues to uptrend could repeat MRCP. If she would need emergent surgery, will need transfer to tertiary care center that has a NICU. Discussed care with on-call GRAPHICS PROGRAMMER physcian - will be transferred if requires surgery, will consult GRAPHICS PROGRAMMER during hospitalization. Discussed with on-call general surgeon no plan for surgery at this time, trend LFTs, if downtrend will be able to discharge Allergies Allergy/AdvReac Type Severity Reaction Status Date / Time No Known Allergies Allergy Verified 02/15/24 09:48 Home Medications Medication Instructions Recorded Confirmed Type prenat.vits,lanre,gbu-mpac-clseo 1 tab PO DAILY 01/04/22 03/01/24 History breast pump #1 ea 02/15/24 03/01/24 Rx calcium carbonate 500 mg PO DAILY 02/29/24 03/01/24 History Past Med/Surg History Problem List (Updated 03/01/24 @ 17:53 by Andrew Smith MD) Choledocholithiasis Cholelithiasis affecting in third trimester, antepartum (Acute) Transaminitis Cholelithiasis without cholecystitis Gallstone Abdominal pain affecting Maternal care for other isoimmunization, unspecified trimester, not applicable or unspecified Gestational diabetes mellitus (GDM) affecting Encounter for anatomic survey Medical History Varicella vaccination Rubella non-immune status, antepartum Gestational diabetes Diet-controlled Surgical History S/P wisdom tooth extraction Family History Other Diabetes Hypertension Myocardial infarction Prostate cancer Denies family history of Ovarian cancer Breast cancer Colorectal cancer Social History Smoking Status: Never smoker Second Hand Exposure: No; Do You Dip or Chew Tobacco: No; Hx Alcohol Use: No Hx Substance Use: No Preferred Language: Slovak Communication Ability: Effective Visual Impairment: No Limitations Hearing Ability: Normal Marketing Services Manager Required: No Beliefs That Will Affect Care: None marital status: marital status details: Victor Manuel Gao (29) [phone] Current Living Situation: Family Current Living Situation Comment: lives with spouse and child, no pets. current occupational status: unemployed current occupation: Homemaker How many Children do You have: 1 Other Information That Helps Us Care for You: No Feels Safe at Home: Yes Safety Concerns: Feels Safe At This Time Diet Comment: Gestational diabetic Assistive Devices: Glasses Review of Systems Review of Systems: see HPI Physical Exam Physical Exam: The patient is awake, alert and oriented 3, well developed and well nourished, normocephalic and atraumatic, in no acute distress. Non-toxic appearing. 30 we eks . HEENT- EOMI, mucous membranes moist. Hearing grossly intact. Heart-normal S1 and S2. No murmurs, rubs or gallops. Lungs-clear bilaterally, no respiratory distress, no accessory muscle use. Abdomen-normal bowel sounds and soft. No ascites noted. Non-tender. Extremities- no clubbing, cyanosis, or edema. Rheumatologic-normal range of motion. Psychiatric-normal affect. Results & Data Results & Data Vital Signs (Past 12 Hours) Vital Signs Pulse Pulse Resp BP Pulse Ox O2 Del Method 03/01/24 12:25 82 03/01/24 09:00 84 20 110/74 98 03/01/24 08:13 76 03/01/24 05:00 70 18 115/78 99 Room Air 03/01/24 03:44 78 16 110/78 98 Room Air Code Status & VTE Plan Code Status full code VTE Prophylaxis Plan VTE Prophylaxis will be ordered: Yes Supervising Physician Co-Signing Physician Notes I personally saw and examined the patient. I independently reviewed the labs, imaging, problem list, medication list, past medical history and family history. I verified all arceo points and agree with Ema Valdez PA-C with the following exceptions and/or additions: 28 year old female at 30 weeks presents to the ER with abdominal pain. Now resolved since 1am. O/E HS RRR, no murmurs, Chest CTAB, Abdo SNT A/P Suspected choledocholithiasis with now passed stone - cover for infection until LFTs improving with Unasyn. Given MRCP negative suspect LFTs will peak and start to trend down PG Care Time/CCT Total # of Minutes Spent Total Time Spent with Patient: Total time spent is greater than 50% in coordination of care (as documented) at patient's floor/unit and/or counseling patient: Coding Level of Care Code 69099 INT INP/OBS CARE 3/75MIN Diagnoses Cholelithiasis without cholecystitis K80.20 Abdominal pain affecting O26.899; R10.9 Transaminitis R74.01 Choledocholithiasis K80.50
[2024-03-01] MEDS: AMPICILLIN/SULBACTAM SOD 3,000 MG/100 ML BAG IV ONE (15:52)
--- NOTE | 2024-03-01 17:00 | Surgery Consultation ---
Date of Consultation March 01, 2024 Assessment & Plan (1) Cholelithiasis without cholecystitis: (2) Transaminitis: Plan 28-year-old woman presents 30 weeks with what appears to have been a past gallstone/choledocholithiasis. She denies any pain or tenderness currently. She is being admitted to the medicine service. No urgent surgical indications. Track LFTs. Probable discharge tomorrow. History of Present Illness Reason for Consultation: gallstones, elevated LFTs Requesting Physician: ED physician Attending Physician: Andrew Smith MD History of Present Illness 28-year-old woman 30 weeks presents with a 1 day history of right upper quadrant pain and nausea that has subsequently subsided. Her LFTs elevated. Ultrasound demonstrated gallstones, but no evidence of acute cholecystitis. MRCP demonstrated no evidence of cholecystitis Her pain has resolved. No nausea. No fevers or chills. Allergies Allergy/AdvReac Type Severity Reaction Status Date / Time No Known Allergies Allergy Verified 02/15/24 09:48 Home Medications Medication Instructions Recorded Confirmed Type prenat.vits,lanre,fdz-bocy-zouhq 1 tab PO DAILY 01/04/22 03/01/24 History breast pump #1 ea 02/15/24 03/01/24 Rx calcium carbonate 500 mg PO DAILY 02/29/24 03/01/24 History Patient History Medical History Varicella vaccination Rubella non-immune status, antepartum Gestational diabetes Diet-controlled Surgical History S/P wisdom tooth extraction Family History Other Diabetes Hypertension Myocardial infarction Prostate cancer Denies family history of Ovarian cancer Breast cancer Colorectal cancer Social History Smoking Status: Never smoker Second Hand Exposure: No; Do You Dip or Chew Tobacco: No; Hx Alcohol Use: No Hx Substance Use: No Preferred Language: Serbian Communication Ability: Effective Visual Impairment: No Limitations Hearing Ability: Normal Surgical Specialist Required: No Beliefs That Will Affect Care: None marital status: marital status details: Victor Manuel Lawsontrong (29) [phone] Current Living Situation: Spouse and Family Current Living Situation Comment: lives with spouse and child, no pets. current occupational status: unemployed current occupation: Homemaker How many Children do You have: 1 Feels Safe at Home: Yes Diet Comment: Gestational diabetic Review of Systems Review of Systems: All systems reviewed & are unremarkable except as noted in HPI & below Physical Exam Constitutional: WD/WN, vitals as above Eyes: PERRL, conjunctivae normal, anicteric sclerae Neck: trachea midline, no thyromegaly Respiratory: normal respiratory effort; no respiratory distress and no labored breathing Cardiovascular: Rate/Rhythm: regular rate and regular rhythm Gastrointestinal (Abdomen): Inspection/Auscultation: abdomen normal to inspection; abdomen not distended Percussion/Palpation: abdomen soft; abdomen nontender, no guarding and abdomen not rigid Skin: no rashes, warm and dry Psychiatric: A+Ox3, euthymic affect Results & Data Vital Signs (Past 12 Hours) Vital Signs Pulse Pulse Resp BP Pulse Ox O2 Del Method 03/01/24 16:19 73 03/01/24 12:25 82 03/01/24 09:00 84 20 110/74 98 03/01/24 08:13 76 03/01/24 05:00 70 18 115/78 99 Room Air Laboratory Results 03/01/24 03/01/24 03/01/24 Range/Units 07:03 06:10 00:14 Total Bilirubin 1.6 H D Cancelled Direct Bilirubin 1.0 H Cancelled AST 92 H Cancelled ALT 87 H Cancelled Alkaline Phosphatase 181 H Cancelled Total Protein 6.2 Cancelled Albumin 3.5 Cancelled Lipase 22 (11-82) U/L Urine Color Dark Yellow Urine Appearance Clear (Clear) Urine pH 6.5 (4.5-7.5) Ur Specific [place] 1.023 (1.000-1.030) Urine Protein Trace H (Negative) Urine Glucose (UA) Negative (Negative) Urine Ketones Trace H (Negative) Urine Blood Negative (Negative) Urine Nitrite Negative (Negative) Urine Bilirubin 2+ H (Negative) Urine Urobilinogen Negative (Negative) Ur Leukocyte Esterase Negative (Negative) Urine WBC (Auto) 0-5 (0-5) /hpf Urine RBC (Auto) 0-2 (0-2) /hpf U Hyaline Cast (Auto) 0-2 (0-2) /lpf U Epithel Cells (Auto) 0-2 (0-2) /hpf Urine Bacteria (Auto) None Seen (None Seen) Diagnostic Findings EXAM: US gallbladder CLINICAL HISTORY: NO PREV. EPIGASTRIC PAIN. PT IS 30 WKS TECHNIQUE: Ultrasound examination of the limited abdomen was performed using grayscale and doppler imaging. COMPARISON: None. FINDINGS: The pancreas is seen within normal limits. The liver is seen enlarged measuring 18.5 cm with increased parenchymal echogenicity. Echogenic area is seen adjacent to the gallbladder/portal area could be hemangioma measuring 3.8 x 2.3 x 3.1 cm. The portal vein is seen patent with hepatopetal flow. The gallbladder is seen distended with normal wall thickness measuring 1.1 mm. Multiple stones and sludge are noted within the gallbladder. Negative Lee sign. The common bile duct is not dilated measuring 3 mm. The right kidney is seen within normal limits with no definite stones or hydronephrosis within. IMPRESSION: 1. Fatty enlarged liver. 2. Echogenic area seen within the right lobe adjacent to the gallbladder/portal area most likely hemangioma. 3. Fixed cholelithiasis. 4. Otherwise unremarkable study. 5. Clinical correlation is suggested for further evaluation. Electronically signed by Richar Ramírez 03-01-2024 04:00 AM Dictated: 03/01/24 0249 Transcribed:
[2024-03-01] MEDS ORDERED: CALCIUM CARBONATE 500 MG CHEWABLE TAB PO PRN (17:14)
[2024-03-01 18:53] LABS: Albumin Level 3.4 gm/dl (3.4-5.0); Bilirubin Direct 0.6 mg/dl (0-0.2); Bilirubin,Total 1.2 mg/dl (0.2-1.0)
[2024-03-01] MEDS: AMPICILLIN/SULBACTAM SOD 3,000 MG/100 ML BAG IV SCH (21:59)
[2024-03-02 06:52] LABS: Basophils # (auto) 0.03 K/uL (0.00-0.20); Basophils % (auto) 0.5 %; Eosinophils % (auto) 1.6 %; Hemoglobin 10.9 g/dl (12.0-16.0); Immature Granulocytes # (auto) 0.04 K/uL (0.01-0.20); Immature Granulocytes % (auto) 0.6 %; Lymphocytes # (auto) 2.32 K/uL (1.20-3.40); Lymphocytes % (auto) 37.4 %; Mean Corpuscular Hemoglobin 28.8 pg (25.0-34.0); Mean Corpuscular Hgb Conc 34.1 g/dL (32.0-36.0); Mean Corpuscular Volume 84.7 fL (80.0-100.0); Mean Platelet Volume 9.1 fL (9.4-12.4); Monocytes # (auto) 0.36 K/uL (0.11-0.59); Monocytes % (auto) 5.8 %; Neutrophils # (auto) 3.36 K/uL (1.40-6.50); Neutrophils % (auto) 54.1 %; Platelet Count 223 K/uL (130-400); RDW Coefficient of Variation 12.7 % (11.5-14.5); RDW Standard Deviation 39.1 fL (36.4-46.3); Red Blood Count 3.78 M/uL (4.20-5.40); White Blood Count 6.21 K/ul (4.8-10.8)
[2024-03-02 07:12] VITALS: RESP 17
[2024-03-02 07:18] LABS: Albumin Globulin Ratio 1.3 (0.9-2); Albumin Level 3.3 gm/dl (3.4-5.0); BUN Creatinine Ratio 11.8 (10-20); Bilirubin,Total 0.9 mg/dl (0.2-1.0); Creatinine Clr Calc Pharmacy 184.1 ml/min; Globulin 2.6 gm/dl (2.5-4.0); Magnesium 1.7 mg/dl (1.7-2.4); Potassium 3.4 mmol/L (3.5-5.1); Total Protein 5.9 gm/dl (6.0-8.3)
--- NOTE | 2024-03-02 09:10 | Discharge Summary ---
Date of Service March 02, 2024 Admission HPI Per Admitting Provider Patient is a 28 y/o who is 30 weeks with essential no other PMHX. 37 history of gestational diabetes in her first , just had an GDM test recently and passed. She was evaluated by OB last night and sent down to the ER due to sudden onset upper abdominal pain. She stated that this pain began at 630 last night after dinner, it was intense and across her upper abdomen and back. It felt like a tight band. It was worsening throughout the evening so she came into the hospital around 9 PM. She noted associated nausea and dyspnea due to the pain. She felt like she cannot get comfortable, had significant pain with sitting, standing, laying down. While she was in the ED, her pain waxed and waned until 1 AM when she received morphine and Zofran which stopped her pain. Her pain has not returned. Patient denies fever, chills, dizziness, lightheadedness, vision changes, dyspnea, chest pain, current abdominal pain, nausea, vomiting, diarrhea. She has no previous history of cholelithiasis. Gallbladder ultrasound showed fixed cholelithiasis, normal echogenic area seen within right lobe adjacent to gallbladder/portal area mostly hemangioma. In ED, LFTs up trended so patient underwent an MRCP at roughly 6 AM on 03/01. MRCP was essentially negative and did not show any stone. She was evaluated by GI who recommended she be transferred for EUS. Handoff from ER provider stated that tertiary care center denied patient as she would not arrive till late in the evening today and they do not do EUS over the weekend. With patient being pain- free, likely passed stone. It was recommended that she be admitted to medicine for LFT monitoring, if continues to uptrend could repeat MRCP. If she would need emergent surgery, will need transfer to tertiary care center that has a NICU. Discussed care with on-call INSURANCE SALES PRODUCER physcian - will be transferred if requires surgery, will consult INSURANCE SALES PRODUCER during hospitalization. Discussed with on-call general surgeon no plan for surgery at this time, trend LFTs, if downtrend will be able to discharge Admission Exam Per Admitting Provider The patient is awake, alert and oriented 3, well developed and well nourished, normocephalic and atraumatic, in no acute distress. Non-toxic appearing. 30 weeks . HEENT- EOMI, mucous membranes moist. Hearing grossly intact. Heart-normal S1 and S2. No murmurs, rubs or gallops. Lungs-clear bilaterally, no respiratory distress, no accessory muscle use. Abdomen-normal bowel sounds and soft. No ascites noted. Non-tender. Extremities- no clubbing, cyanosis, or edema. Rheumatologic-normal range of motion. Psychiatric-normal affect. Principal Diagnosis cholelithiasis, transaminitis Discharge Exam Gen: NAD, WD/WN HEENT: NCAT, PERRL, no thyromegaly, anicteric sclera CV: RRR, no m/r/g, S1/S2 normal, no LE edema Resp: CTAB, symmetrical chest rise, breathing non-labored Abd: Appropriately gravid for gestational age, soft, nontender MSK: Full ROM, normal str, no gross deformities Skin: Warm, dry, pink, no rashes or lesions Neuro: AOx3, CN II-XII grossly intact Psych: Mood-affect congruent. Speech pace and content normal. Discharge Data Allergies Allergy/AdvReac Type Severity Reaction Status Date / Time No Known Allergies Allergy Verified 02/15/24 09:48 Consultations 03/01/24 14:18 ED Decision to Admit Stat 03/01/24 15:20 Consult Gastroenterology Routine 03/01/24 15:21 Consult General Surgery Routine 03/01/24 16:48 Consult Obstetrics Routine Ordered Studies 03/02/24 06:24 03/02/24 06:24 02/29/24 23:58 US gallbladder Stat IMPRESSION: 1. Fatty enlarged liver. 2. Echogenic area seen within the right lobe adjacent to the gallbladder/portal area most likely hemangioma. 3. Fixed cholelithiasis. 4. Otherwise unremarkable study. 5. Clinical correlation is suggested for further evaluation. 03/01/24 06:49 MR MRCP Stat IMPRESSION: 1. Mildly distended gallbladder with cholelithiasis. No definite evidence of acute cholecystitis. 2. No biliary duct dilation or choledocholithiasis identified. 3. Partially imaged intrauterine fetus in cephalic positioning. 4. Hepatomegaly. Hospital Course (1) Cholelithiasis without cholecystitis: (2) Abdominal pain affecting : (3) Transaminitis: (4) Choledocholithiasis: Rafael Corey is a 28yo at EGA 04/12, who presented to the ED with severe abdominal pain. Her initial labs showed elevated LFTs, which were uptrending. Gallbladder ultrasound showed fixed cholelithiasis. MRCP showed mild gallbladder distention, gallstones, normal CBD. Low concern for acute cholecystitis, cholangitis, or HELLP syndrome. She was admitted to monitor LFTs, and OB and Gen Surg were consulted. Patient discharged home when all teams agreed LFTs stable and further management can continue outpatient. Transaminitis - Trend: - Initial (03/01/24 06:10) labs --> PM (18:00) --> AM (03/02 6:24) --> time of discharge (03/02 PM) - Tbili 1.6 --> 1.2 --> 0.9 --> 0.8; direct 1.0 --> 0.6 --> 0.3 - AST 92 --> 81 --> 65 --> 62 - ALT 87 --> 102 --> 98 --> 102 - ALP 181 --> 215 --> 226 --> 250 - Overall, downtrending or appropriate for 3rd trimester; likely 2/2 gallstones Cholelithiasis without cholecystitis - US Gallbladder showed a fatty enlarged liver, likely hemangioma within the R lobe adjacent to the gallbladder/portal area; Fixed cholelithiasis. - MRCP showed a mildly distended gallbladder with cholelithiasis; no evidence of biliary duct dilation, or choledocholithiasis; Hepatomegaly. - Elevated LFTs as above, no leukocytosis, patient afebrile w VSS - Gen surg consulted: - Determined overall nonconcerning for cholecystitis, cholangitis; no urgent surgical indications - Recommended empiric abx (IV Unasyn 3g Q6H) until LFT downtrend - Should follow-up with Gen surg outpatient - -0-0-1 at 30 04/12 EGA - prior complicated by GDM; failed recent gtt - confirmed Unasyn safe during before tx gallstones - continued home vitamin - OB consulted: Total Time Total Time Spent Total Time Spent (In Minutes): See attending documentation Discharge Plan Discharge Items Patient Disposition: Home - Self-Care Reason For Visit: CHOLELITHIASIS, Discharge Diagnosis: cholelithiasis Activity: Per Instructions section Non-emergency contact: Primary Care Provider and Ecological Economist Call non-emergency contact if: you have any medication questions, your symptoms worsen and your pain is concerning for you Follow-up/Referrals: PCP,NO [Primary Care Provider] - Diet: Regular Addtl Attending Provider Instructions: You came to the hospital after a few hours of severe pain like a band around your upper abdomen, and were admitted for gallstones (cholelithiasis) and elevated liver enzymes (transaminitis). Initial tests and imaging showed no signs of infection, and your symptoms resolved in a few hours after treatment with pain and nausea medications. In addition to symptom management by our hospitalists, our General Surgery and Fingerprinter teams were also consulted. You were deemed safe for discharge when all 3 teams evaluated you and agreed you were medically stable. You will continue your appointments with OB and also follow-up after discharge with General Surgery. Medications Your medication list has been reviewed and reconciled. An updated list is included with your discharge paperwork; please review this list closely. No major changes were made during this admission. Make sure all of your doctors know every medicine you are taking (including rrcs-ske-yrkakuc medicines, vitamins, and supplements). Call your PCP before taking any new medicines because some of these may interact with your current medications, or may make your symptoms worse. Follow-up appointments: Make a follow-up appointment with your PCP within the next week. It is very important that you follow up with them shortly after discharge from the hospital. Your next appointment is on 03/04/24 at 10:15am ([facility]). You will also need to follow up with General Surgery. If you do not hear from them in 7-10 days, please call their office (at [phone]) to set up an appointment. Keep all your follow-up appointments as already scheduled. If you cannot make an appointment, notify your provider. Please bring a copy of this discharge summary with you to your next office appointment so that your provider can review it at that time and stay updated on your hospitalization and potential changes in your care. You may call [phone] and ask to leave a message for Dr. Chavira if you have any questions about your hospitalization. Contact your or OB if your symptoms return or worsen. Call 911 or go to the ER if you experience any of the following: Severe headache not relieved by standard OTC medications Sudden, severe abdominal pain or shortness of breath Vaginal bleeding or signs of early labor Thank you for allowing us to participate in your care. Pending Studies at Discharge: No Stand-Alone Forms: My [facility], Smoking Cessation Medications and DC Order Prescriptions: Continued prenat.vits,lanre,lce-hbun-afora Tablet 1 tab PO DAILY (DME) breast pump Device See Rx Instructions .ROUTE .MEDSUPPLY Qty: 1 0RF Rx Instructions: As directed calcium carbonate 500 mg calcium (1,250 mg) Tablet,Chewable 500 mg PO DAILY Discharge Orders: Discharge Order (Routine); Ordered 03/02/24 Ordered By: Michael Chavira Admission Data Admit Date/Time: 03/01/24 15:01 Attending Provider: Laly Stock Admit Provider: Andrew Smith Primary Care Provider: PCP,NO Other Providers: Andrew Smith; Stanley Pepe; Gunner Zavala; Jazzmine Moreno Other Interventions: Discharge Summary Assessment (RN) Last Done: 03/02/24 14:45 Supervising Physician Co-Signing Physician Notes I personally saw and examined the patient. I independently reviewed the labs, imaging, problem list, medication list, past medical history and family history. I verified all arceo points and agree with Ema Valdez PA-C with the following exceptions and/or additions: 28 year old female at 30 weeks presents to the ER with abdominal pain. Pain resolved later in the ED. vitals noted nad heent nc at mmm breathing unlabored no accessory muscles good effort skin no rashes no pallor or icterus neuro no focal deficits. Abdominal pain with rise in LFT - Suspected choledocholithiasis with passed stone - MRCP negative. Evaluated by surgery - no concern of cholecystitis/cholangitis. Empirically covered with Unasyn until LFTs were improving. -After discussion with OB - discharged home. Resident Activity Tracking Resident Involvement: Resident Care Provided Care Provided: Adult Hospital Medicine
--- NOTE | 2024-03-02 09:18 | Surgery Progress Note ---
Date of Service March 02, 2024 Assessment & Plan (1) Cholelithiasis without cholecystitis: (2) Transaminitis: Plan 28-year-old woman presents 30 weeks with what appears to have been a past gallstone/choledocholithiasis. She denies any pain or tenderness currently. She is being admitted to the medicine service. No urgent surgical indications. doing well today. LFTs returning to normal. Total bilirubin is 0.9. Advance diet as tolerated. May be discharged to home for follow-up with surgery. Admission and Anticipated Discharge Date Admission Date: March 01, 2024 Subjective Doing well. No pain today. Tolerating Diet. Denies nausea or vomiting. LFTs returning to normal. total bilirubin 0.9 Physical Exam Gastrointestinal (Abdomen): Inspection/Auscultation: abdomen normal to inspection; abdomen not distended Percussion/Palpation: abdomen soft; abdomen nontender, no guarding and abdomen not rigid Results & Data Vital Signs (Past 12 Hours) Vital Signs Temp Pulse Resp BP Pulse Ox O2 Del Method 03/02/24 07:12 36.9 C 78 17 106/67 96 Room Air
[2024-03-02] MEDS: PRENATAL VITAMIN 1 TAB PO SCH (09:57)
[2024-03-02 12:27] LABS: Albumin Level 3.6 gm/dl (3.4-5.0); Bilirubin Direct 0.3 mg/dl (0-0.2); Bilirubin,Total 0.8 mg/dl (0.2-1.0); Total Protein 6.4 gm/dl (6.0-8.3)
[2024-03-02 14:19] VITALS: BP 116/73; PULSE 88; TEMP 98.6; O2SAT 98
== END 2024-03-02 15:09 | disposition home or self-care (01) ==
LOC: ED 23:43 → INTOOBSV 03-01 15:01 → SUATTDRO 03-01 15:01 → EDINP 03-01 15:01 → 3E 03-01 16:49
DX: K76.0 Fatty (change of) liver, not elsewhere classified; K80.20 Calculus of gallbladder without cholecystitis without obstruction; Z33.1 Pregnant state, incidental

== ENCOUNTER 2024-05-09 00:40 | Inpatient (IN) ==
[2024-05-09] MEDS ORDERED: OXYTOCIN 30 UNITS/NSS 30 UNITS/500 ML BAG IV PRN ×2 (00:54→01:59)
[2024-05-09] MEDS ORDERED: LIDOCAINE 1% LOCAL 20 ML VIAL INFIL PRN (00:54)
[2024-05-09] MEDS ORDERED: LACTATED RINGER'S 1,000 ML IV PRN (00:54)
[2024-05-09] MEDS: OXYTOCIN 30 UNITS/500ML NSS IV ONE (01:14)
--- NOTE | 2024-05-09 01:30 | History & Physical Report ---
Date of Service May 09, 2024 Assessment & Plan (1) Normal labor: Plan admit, fetus reassuring, anticipate . Admission and Anticipated Discharge Date Admission Date: May 09, 2024 History of Present Illness Chief Complaint: labor Primary Care Provider: Jefferson Ramirez, VENESSA, CHELE Patient is a 28yowf with iup at 40 1/7 presents to labor and delivery in active labor. arom on arrival. Checked by nursing and found to be 8-9cm. Patient notes contractions started around 11 and rapidly progressed. and Delivery Plans GDM w/prior --desires to retest-----passed GTT testing so no GDM this Hx of 9# first baby *Growth US at 36wks-EFW 44%; AC 74% Anti E Antibody Screen *titer Q 4 wks *if 1:8 or greater reconsult Rubella Equivocal *PPX MMR Hepatitis B Non Immune *Recommend Hepatitis B vaccine OB Labs: Blood Type A Positive 10/04/23 Antibody Screen POSITIVE A 10/04/23 Hgb 10.9 g/dl (12.0-16.0) L 03/02/24 Hct 32.0 % (37.0-47.0) L 03/02/24 MCV 84.7 fL (80.0-100.0) 03/02/24 Plt Count 223 K/uL (130-400) 03/02/24 Rubella IgG Antibody Equivocal (Immune) L 10/04/23 RPR Nonreactive (Nonreactive) 02/08/22 Treponema pallidum Ab Negative (Negative) 02/15/24 Hep Bs Antigen Negative (Negative) 10/04/23 Hep Bs Antigen NON-REACTIVE (NON-REACTIVE) 02/08/22 Hepatitis C Antibody Negative (Negative) 10/04/23 Hepatitis C Ab (EIA) NON-REACTIVE (NON-REACTIVE) 02/08/22 HIV 1&2 Ab/P24 Ag 4thGn Negative (Negative) 10/04/23 HIV (1&2) Ag & Ab Conf NON-REACTIVE (NON-REACTIVE) 02/08/22 Glucose 1 Hr 50 gm 132 mg/dl (70-130) H 02/15/24 OB Optional Labs: Chlamydia trachomatis RNA Not Detected (NotDetected) 10/04/23 Neisseria gonorrhoeae RNA Not Detected (NotDetected) 10/04/23 Labs Reviewed: Declines cf/sma--mln Declines cfdna-mln Declines quad screen--mln declines afp--akh gbs neg Allergies Allergy/AdvReac Type Severity Reaction Status Date / Time No Known Allergies Allergy Verified 05/01/24 10:24 Home Medications Medication Instructions Recorded Confirmed Type prenat.vits,lanre,pfs-jcdx-aresn 1 tab PO DAILY 01/04/22 05/01/24 History breast pump #1 ea 02/15/24 05/01/24 Rx calcium carbonate 500 mg PO DAILY 02/29/24 05/01/24 History Patient History Medical History Cholelithiasis affecting in third trimester, antepartum Gestational diabetes mellitus (GDM) affecting Choledocholithiasis Varicella vaccination Rubella non-immune status, antepartum Gestational diabetes Diet-controlled Surgical History S/P wisdom tooth extraction Family History Grandmother (Paternal) Myocardial infarction Grandfather (Maternal) Myocardial infarction Other Diabetes Hypertension Prostate cancer Denies family history of Ovarian cancer Breast cancer Colorectal cancer Social History Smoking Status: Never smoker Second Hand Exposure: No; Do You Dip or Chew Tobacco: No; Hx Alcohol Use: No Hx Substance Use: No Preferred Language: Kittitian Communication Ability: Effective Visual Impairment: No Limitations Hearing Ability: Normal Home Health Clinical Liaison Required: No Beliefs That Will Affect Care: None marital status: marital status details: Victor Manuel Gao (29) [phone] Current Living Situation: Spouse and Family Current Living Situation Comment: lives with spouse and child, no pets. current occupational status: unemployed current occupation: Homemaker How many Children do You have: 1 Feels Safe at Home: Yes Childhood Exposure to Second-Hand Smoke: No Diet: regular Diet Comment: Gestational diabetic caffeine: Yes during the past year weight has: remained stable Dental Care, Regularly: No Physical Activity Frequency: Daily Seatbelt Use: always Sunscreen Use: Yes Assistive Devices: Glasses OB History Past Pregnancies Del. Date GA wks Lbr Lgth wt Sex Type del Anes Place Del Prov ? Comment 08/21/22 40 9lb 0.6oz M Epi dural [facility] Dr. Kaye Bruno GDM, LGA BUCKLE COVERER History noncontributory Physical Exam Constitutional: WD/WN, vitals as above Gastrointestinal (Abdomen): gravid Psychiatric: A+Ox3, euthymic affect Genitourinary: cx--rim/100/0 toco--q1-2 min efm--140s, with mod variability Coding Level of Care Code None Diagnoses Normal labor O80; Z37.9
--- NOTE | 2024-05-09 01:38 | Delivery Summary ---
Vaginal Delivery Summary Date of Service May 09, 2024 Vaginal Delivery Summary and 2nd Degree LAC Pre-operative Diagnosis: at 40 weeks gdm active labor and srom Post-operative Diagnosis: same Procedure: precipitious second degree laceration and repair EBL: 237cc Anesthesia: local infiltration of lidocaine to the perineum Procedure: The patient pushed for about three contractions to deliver a viable male in ananth position. A small midline epis was cut as the passage through the introitus was very tight. The nose and mouth were bulb suctioned on the perineum and the rest of the was then delivered without difficulty. Delivered through a nuchal cord. The baby was vigorous. The nose and mouth were again bulb suctioned and the was placed in the maternal abdomen for drying and attention. Cord was clamped and cut at one minute of life. Cord blood and segment obtained. Placenta delivered spontaneous, intact with a three vessel cord. Cervix/sulci/rectum were intact. A second degree perineal laceration was repaired in the normal standard fashion. Hemostasis obtained with IM pitocin, dilute pitocin and fundal massage. Apgars were 8/8. Mother and baby doing well at the end of the delivery[place] [facility] [place] Charge Delivery Type Details: and 2nd Degree LAC
[2024-05-09] MEDS: OXYTOCIN 10 UNITS/ML VIAL ONE (01:55)
[2024-05-09] MEDS: LIDOCAINE 1% LOCAL 20 ML VIAL ONE (01:55)
[2024-05-09] MEDS ORDERED: bisacodyL 10 MG SUPP PR PRN (01:59)
[2024-05-09] MEDS ORDERED: HYDROCORTISONE ACETATE 25 MG SUPP PR PRN (01:59)
[2024-05-09] MEDS ORDERED: oxyCODONE/ACETAMINOPHEN 5mg/325mg TAB PO PRN (01:59)
[2024-05-09] MEDS: ACETAMINOPHEN 325 MG TAB PO PRN (02:16)
[2024-05-09] MEDS: OXYTOCIN 10 UNITS/ML 10ML VIAL IM ONE (02:16)
[2024-05-09] MEDS: DIPHTHER/TETAN/PERTUS Vaccine (Tdap, Adol/Adult) 0.5mL IM ONE (02:16)
[2024-05-09] MEDS: BENZOCAINE 20% SPRY 85 APPLN/85 GM CAN EXT PRN (02:16)
[2024-05-09 02:59] LABS: Hematocrit (blood only) 32.7 % (37.0-47.0); Hemoglobin 11.1 g/dl (12.0-16.0); Mean Corpuscular Hemoglobin 27.6 pg (25.0-34.0); Mean Corpuscular Hgb Conc 33.9 g/dL (32.0-36.0); Mean Corpuscular Volume 81.3 fL (80.0-100.0); Platelet Count 226 K/uL (130-400); RDW Coefficient of Variation 14.3 % (11.5-14.5); RDW Standard Deviation 41.7 fL (36.4-46.3); Red Blood Count 4.02 M/uL (4.20-5.40); White Blood Count 9.01 K/ul (4.8-10.8)
[2024-05-09] MEDS: IBUPROFEN 600 MG TAB PO PRN (03:30)
[2024-05-09] MEDS: DOCUSATE SODIUM 100 MG CAP PO SCH (08:33)
[2024-05-09] MEDS: PRENATAL VITAMIN 1 TAB PO SCH (08:33)
[2024-05-09 11:40] VITALS: O2SAT 97
[2024-05-10 06:16] LABS: Hematocrit (blood only) 30.9 % (37.0-47.0); Hemoglobin 10.1 g/dl (12.0-16.0)
--- NOTE | 2024-05-10 06:32 | Obstetrical Progress Note ---
Date of Service May 10, 2024 Assessment & Plan (1) Encounter for care and examination after delivery: Plan Pt is 31 yo post- day 1 s/p at 40w1d. uncomplicated. Doing well. - Encourage ambulation and breast feeding - Pain control with Tylenol and ibuprofen - Discharge today Admission and Anticipated Discharge Date Admission Date: May 09, 2024 Subjective Pt is 31 yo post- day 1 s/p at 40w1d. uncomplicated. Ambulation:In and out of room Voiding:voiding normally Passing gas: yes BM:no Diet tolerance:regular diet Lochia:bloody, small clots Feeding type: breast Current pain level: 3 /10 improved with ibuprofen Resting comfortably this morning in NAD. Denies LIZARRAGA, CP, SOB, N/V/D, LE pain/swelling. Review of Systems Review of Systems: As per HPI Physical Exam Constitutional: WD/WN, vitals as above Respiratory: normal respiratory effort, lungs clear to auscultation Cardiovascular: RRR, no murmur, no edema Gastrointestinal (Abdomen): normal bowel sounds, soft, nontender, no hepatosplenomegaly Uterine fundus firm and at 1cm below level of umbilicus Neurologic: PERRL, EOMI, accommodation nl, no face palsy, no dysarthria Moving all 4 extremities on command Psychiatric: A+Ox3, euthymic affect Results & Data Vital Signs (Past 12 Hours) Vital Signs Temp Pulse Resp BP Pulse Ox O2 Del Method 05/10/24 00:30 36.7 C 76 18 108/71 97 Room Air 05/09/24 20:00 Room Air 05/09/24 20:00 36.8 C 88 18 119/77 97 Room Air Resident Activity Tracking Resident Involvement: Resident Care Provided Care Provided: Adult Hospital Medicine
[2024-05-10 07:42] VITALS: BP 106/71; PULSE 72; RESP 20; TEMP 97.9
[2024-05-10] MEDS ORDERED: bisacodyL 5 MG TABEC PO SCH (20:00)
== END 2024-05-10 15:07 | disposition home or self-care (01) | DRG 807 ==
LOC: OPB 00:40 → 4S1 00:41 → 4E2 04:08
DX: O48.0 Post-term pregnancy; Z37.0 Single live birth; O69.81X0 Labor and delivery complicated by cord around neck, without compression, not applicable or unspecified; Z3A.40 40 weeks gestation of pregnancy; O70.1 Second degree perineal laceration during delivery